=== PATIENT | male | born 1960 | race Caucasian/White ===

== ENCOUNTER → 2017-01-28 | Outpatient (CLI) | payer OTHER ==
--- NOTE | ~2017-01-28 | ST ---
Unit #: [id number] #: [id number] Patient: DANAE GARNER [id number] [address] [address] [id number] O MR#: [id number] NAME: DANAE GARNER. : 1960 SEX: M STUDY DATE/TIME: UNIT: [facility] ROOM: STUDY DESCRIPTION: Stress Test Attending Physician: Jeramy Man M.D. Referring Physician: Jeramy Man M.D. Primary Care Physician: Singh Ashby A.P.R.N. CARDIOLOGY REPORT EXAM Changed to a Lexiscan Cardiolite Stress Test due to increased shortness of breath. Tried to attempt regular exercise Cardiolite Stress Test using Rui protocol and patient became very dyspneic and insisted to stop the test about 2.5 minutes into the test. DESCRIPTION Baseline EKG - normal sinus rhythm with ventricular rate 75 beats/minute, left atrial abnormality, slow R wave progression. Lexiscan is a four minute test with Lexiscan being injected within the first minute followed by Cardiolite. EKG during the test showed some nonspecific ST-T wave abnormalities, nothing acute. A rare premature ventricular complex. The patient had no complaints of chest pain, palpitations or dizziness. Had increased shortness of breath and fatigueness which resolved in recovery phase. Maximum heart rate response was 114 beats/minute with a maximum blood pressure response of 174/103 mmHg. At the end of recovery phase, patient's blood pressure decreased down to 132/83 mmHg. Cardiolite was injected after Lexiscan within the first minute of the test. Radionuclide test pending. Please correlate with nuclear images. Dictated by... Jeo Owen.P.RHeather for Enid Maguire/lakeshia TD: 01/28/2017 11:26 JOB #: [id number] Unit #: [id number] #: [id number] Patient: DANAE GARNER CARDIOLOGY REPORT Page 1 of 1 X Marcella Montez APRN CARDIOLOGY REPORT
--- NOTE | ~2017-01-28 | TH ---
Unit #: [id number] #: [id number] Patient: DANAE GARNER [id number] [place] [address] [id number] O MR#: [id number] NAME: DANAE GARNER. : 1960 SEX: M STUDY DATE/TIME: 01/28/2017 UNIT: [facility] ROOM: STUDY DESCRIPTION: Attending Physician: Jeramy Man M.D. Referring Physician: Jeramy Man M.D. Primary Care Physician: Singh Ashby A.P.R.N. CARDIOLOGY REPORT EXAM Lexiscan Cardiolite stress test, nuclear portion. PROCEDURE Using technetium 99m labeled Cardiolite, rest and stress SPECT images were obtained. Multiple SPECT images were obtained in various views including horizontal and vertical long axis and short axis views of the left ventricle. Images were obtained by gated SPECT method. The patient was administered 10.89 mCi of Cardiolite at rest. Patient was administered 30.8 mCi of Cardiolite after Lexiscan infusion was completed. On the stress images, there is a small area of mild decreased isotope activity involving the inferior wall. The rest images show a larger area of moderate decreased isotope activity inferiorly. Comparing rest and stress images, there is no obvious stress-induced ischemia noted. The small area of predominantly fixed defect seen inferiorly, worse on the rest images is consistent with soft tissue artifact. The left ventricular ejection fraction is calculated to be 66%. There is no focal wall motion abnormality seen. CONCLUSION 1. No obvious stress-induced ischemia noted. 2. There is a small area of predominantly fixed defect seen inferiorly, most likely due to soft tissue artifact. 3. The left ventricular ejection fraction is calculated to be 66%. 4. There is no focal wall motion abnormality seen. 5. Normal Lexiscan Cardiolite stress test. 6. Technically limited study due to increased gut uptake. Clinically correlation is requested. Dictated by... Enid Maguire TD: 01/28/2017 13:59 JOB #: [id number] Unit #: [id number] #: [id number] Patient: DANAE GARNER CARDIOLOGY REPORT Page 1 of 1 X Paula Interiano MD <ELECTRONICALLY SIGNED> 02/27/17 1429 CARDIOLOGY REPORT
--- NOTE | ~2017-01-28 | PFT ---
[id number] [facility] [address] [facility]. [place], [place] [address] [id number] O MR#: [id number] NAME: DANAE GARNER ROOM: SEX: Patrice STUDY DATE/TIME: 02/02/2017 : 1960 AGE: STUDY DESCRIPTION: Attending Physician: Jeramy Man M.D. Referring Physician: Jeramy Man M.D. Primary Care Physician: Singh Ashby A.P.R.N. PULMONARY DIAGNOSTIC REPORT EXAM Pulmonary function test Spirometry reveals very severe obstructive defect with an FEV1 of 980 mL, 25% of predicted. No significant response to bronchodilators. Flow volume loop consistent with severe obstructive defect. Lung volumes reveal air-trapping and hyperinflation. Diffusion capacity is very severely reduced. Dictated by... Enid Montgomery/romina TD: 02/03/2017 16:19 JOB #: [id number] PULMONARY DIAGNOSTIC REPORT Page 1 of 1
[2017-01-29 11:59] LABS: ARTERIAL BLD GAS O2 SATURATION 88.9 % (90.0-100.0); ARTERIAL BLOOD GAS ALLEN TEST NORMAL; ARTERIAL BLOOD GAS ART SITE RIGHT RADIAL; ARTERIAL BLOOD GAS CARBOXY HB 4.2 %sat (0.0-9.0); ARTERIAL BLOOD GAS HCO3 26.2 mmol/L; ARTERIAL BLOOD GAS MET HB 0.6 %sat (0.0-2.0); ARTERIAL BLOOD GAS PCO2 41.7 mmHg (35.0-45.0); ARTERIAL BLOOD GAS PO2 60.7 mmHg (80.0-100); ARTERIAL BLOOD GAS pH 7.406 (7.350-7.450); ARTERIAL DRAW? YES
[2017-01-29 12:00] LABS: ARTERIAL BLOOD GAS DELIVERY ROOM AIR
== END | disposition home or self-care (01) ==
LOC: CNUC 07:30
PROVIDERS: Surgery
DX: R91.8 Other nonspecific abnormal finding of lung field (principal)
CPT/HCPCS: 36600; 78452; 82803; 93017; 94060; 94726; 94729; A9500; J2785

== ENCOUNTER → 2017-03-02 | Outpatient (CLI) | payer OTHER ==
[2017-03-08 14:56] LABS: ASPERGILLUS FLAVUS Negative (Negative); ASPERGILLUS FUMIGATUS Negative (Negative); ASPERGILLUS NIGER Negative (Negative); BLASTOMYCES ANTIBODY Negative (Negative); COCCIDIODES ANTIBODY Negative (Negative); CRYPTOCOCCAL AB <1:2 (()); CRYPTOCOCCAL AG SCREEN SOURCE Serum (()); CRYPTOCOCCAL SCREEN Not Detected (Not Detected); HISTOPLASMA AB Negative (Negative)
== END | disposition home or self-care (01) ==
LOC: CLAB 13:35
PROVIDERS: Surgery
DX: R59.1 Generalized enlarged lymph nodes (principal)
CPT/HCPCS: 36415; 86606; 86612; 86631; 86698

== ENCOUNTER → 2017-04-28 | Outpatient (CLI) | payer OTHER ==
--- NOTE | ~2017-04-28 | MR17 ---
[facility] A Service of [facility] & [facility] RADIOLOGY TEXT RESULTS PATIENT: DANAE GARNER LOCATION: [facility] : 62 UNIT #: [id number] AGE: [address]: Jeramy Man MD SEX: M ORDER DR: [id number] [address] [address] [id number] O MR#: [id number] Acc #: [id number] NAME: DANAE GARNER : 1960 SEX: M STUDY DATE/TIME: 04/28/2017 11:21 UNIT: [facility] ROOM: STUDY DESCRIPTION: MR Brain WWo Contrast Attending Physician: Jeramy Man M.D. Referring Physician: Jeramy Man M.D. Ordering Physician: Jeramy Man M.D. Primary Care Physician: Singh Ashby A.P.R.N. MRI CENTER REPORT This report is preliminary unless electronic signature is present. EXAM MRI of the brain with and without contrast, dated 04/28/2017. COMPARISON None. HISTORY Patient was recently diagnosed with lung cancer last week. Evaluate for brain metastases to help with staging. FINDINGS Multisequence, multiplanar imaging of the brain was obtained with and without contrast. 17 mL of MultiHance was administered intravenously. Nonenhancing punctate 2-3 hyperintense T2 signal, less than 5 mm lesions are noted in the periventricular and subcortical supratentorial white matter, particularly in the left frontal lobe. No enhancing lesions, acute stroke, hemorrhage, hydrocephalus, or midline shift. Thick slices through the sella with the pituitary gland, pineal region and upper cervical spine are unremarkable. The left transverse sinus is of small caliber with a slightly more prominent left sigmoid sinus and left internal jugular vein. These are, however, asymmetrically smaller when compared to the right. S-shaped nasal septal deviation is seen. Minimal bilateral ethmoid and mild bilateral mastoid sinus mucosal thickening is seen. IMPRESSION 1. No enhancing lesions to suggest metastases. 2. Minimal hyperintense T2 signal, nonenhancing/nonspecific lesions are noted in the white matter, likely related to minimal, chronic microvascular ischemic change or migraine based on age and statistics. [facility] A Service of [facility] RADIOLOGY TEXT RESULTS PATIENT: DANAE GARNER LOCATION: [facility] #: [id number] : [birth year] UNIT #: [id number] AGE: [address]: Jeramy Man MD SEX: M ORDER DR: Dictated by... Chata Do M.D. THIS IS AN ELECTRONICALLY VERIFIED REPORT Chata Do M.D. at 05/05/2017 6:58 AM CPR/jt TD: 04/28/2017 18:01 JOB #: [id number] MRI CENTER REPORT Page 1 of 1
== END | disposition home or self-care (01) ==
LOC: SMRI 10:26
DX: C34.12 Malignant neoplasm of upper lobe, left bronchus or lung (principal); R93.0 Abnormal findings on diagnostic imaging of skull and head, not elsewhere classified; R90.82 White matter disease, unspecified
CPT/HCPCS: 70553; A9581